=== PATIENT | male | born 1945 | race Caucasian/White ===

== ENCOUNTER 2018-04-23 22:05 | Emergency (ER) | payer MEDICARE ==
[~2018-04-23] VITALS: Ht 185.4 cm; Wt 97.7 kg
[~2018-04-23 22:05] MED LIST: BACTRIM DS1 TAB PO
[2018-04-23 22:42] LABS: URINE BILIRUBIN - DIPSTICK NEGATIVE (NEGATIVE); URINE BLOOD DIPSTICK SMALL (NEGATIVE); URINE COLOR YELLOW; URINE GLUCOSE - DIPSTICK NEGATIVE (NEGATIVE); URINE KETONE NEGATIVE (NEGATIVE); URINE LEUK ESTERASE NEGATIVE (NEGATIVE); URINE NITRITE - DIPSTICK NEGATIVE (Negative); URINE PROTEIN - DIPSTICK NEGATIVE (NEG-TRACE); URINE SPECIFIC GRAVITY <=1.005; URINE UROBILINOGEN - DIPSTICK 0.2 E.U./dL (0.2)
[2018-04-23 22:52] LABS: URINE SQUAMOUS EPITHELIAL CELL FEW EPI/hpf (0-FEW)
[2018-04-23] MEDS ORDERED: TAMSULOSIN0.4 MG PO (23:17)
[2018-04-23] MEDS ORDERED: BACTRIM DS1 TAB PO (23:17)
[2018-04-23 23:35] VITALS: BP 148/75
== END 2018-04-23 23:35 | disposition home or self-care (01) ==
LOC: ED 22:05
PROVIDERS: Family Medicine
PROC: 0T9B70Z Drainage of Bladder with Drainage Device, Via Natural or Artificial Opening (ICD-10-PCS; principal; 2018-04-23)
DX: N40.1 Benign prostatic hyperplasia with lower urinary tract symptoms (principal); R33.8 Other retention of urine

== ENCOUNTER 2018-04-26 09:51 | Emergency (ER) | payer MEDICARE ==
[~2018-04-26] VITALS: Ht 185.4 cm; Wt 97.0 kg
[~2018-04-26 09:51] MED LIST changes: +TAMSULOSIN0.4 MG PO
[2018-04-26 10:25] VITALS: BP 151/86
== END 2018-04-26 10:25 | disposition home or self-care (01) ==
LOC: ED 09:51
DX: R33.9 Retention of urine, unspecified (principal); Z46.82 Encounter for fitting and adjustment of non-vascular catheter

== ENCOUNTER 2021-07-06 08:38 | Emergency (ER) | payer MEDICARE ==
[~2021-07-06] VITALS: Ht 185.4 cm; Wt 100.0 kg
[2021-07-06 08:53] VITALS: BP 158/89
[2021-07-06] MEDS ORDERED: ATORVASTATIN CA40 MG PO (09:01)
[2021-07-06] MEDS ORDERED: METOPROLOL SUCC50 MG PO (09:01)
[2021-07-06 09:15] VITALS: BP 153/81
[2021-07-06 09:30] VITALS: BP 150/81
[2021-07-06] MEDS ORDERED: NEOMYCIN/POLYMY1 SOL AD (09:54)
[2021-07-06] MEDS ORDERED: OMNICEF300 M1 PO (09:54)
[2021-07-06] MEDS ORDERED: DOXYCYCL HYC100 M4 PO (09:54)
[2021-07-06 10:20] VITALS: BP 153/81
== END 2021-07-06 10:31 | disposition home or self-care (01) ==
LOC: ED 08:38
DX: H60.91 Unspecified otitis externa, right ear (principal); H60.11 Cellulitis of right external ear; I10 Essential (primary) hypertension; Z88.1 Allergy status to other antibiotic agents

== ENCOUNTER 2021-08-12 07:30 | Emergency (ER) | payer MEDICARE ==
[2021-08-12] VITALS (7 sets, daily range): BP systolic 138–187; BP diastolic 68–94
[~2021-08-12] VITALS: Ht 185.4 cm; Wt 100.0 kg
[~2021-08-12 07:30] MED LIST changes: +ATORVASTATIN CA40 MG PO; +DOXYCYCL HYC100 M4 PO; +METOPROLOL SUCC50 MG PO; +NEOMYCIN/POLYMY1 SOL AD; +OMNICEF300 M1 PO
[2021-08-12] MEDS ORDERED: EPIPEN 2-P0.3 MG/0.3 IM (09:26)
[2021-08-12] MEDS ORDERED: PREDNISONE50 MG PO (09:26)
[2021-08-12] MEDS ORDERED: ALLERGY RELF10 M3 PO (09:26)
== END 2021-08-12 09:40 | disposition home or self-care (01) ==
LOC: ED 07:30
DX: T63.461A Toxic effect of venom of wasps, accidental (unintentional), initial encounter (principal); R06.02 Shortness of breath; R22.0 Localized swelling, mass and lump, head; I10 Essential (primary) hypertension